=== PATIENT | female | born 1985 | race Caucasian/White ===

== ENCOUNTER 2021-03-12 04:53 | Emergency (ER) | payer OTHER, SELFPAY ==
--- NOTE | ~2021-03-12 | CT_ITS ---
EXAMINATION: CT facial bones wo con DATE: 03/12/2021 06:34 INDICATION: Face injury. TECHNIQUE: Computed tomography (CT) of the facial bones and maxillofacial region was performed withou t intravenous contrast. Automated exposure control and iterative reconstruction technique were employ ed. The dose-length product was 279.91 mGy-cm. COMPARISON: None. FINDINGS: There is leftward deviation the nasal septum. There is a comminuted fractures involving the nasal bones and anterior nasal septum. There is mild mucosal thickening in the paranasal sinuses. Th e mastoid air cells are normal. The orbits are normal. There is right periorbital soft tissue swellin g with soft tissue gas. Some of the teeth are broken. There are periapical lucencies around a broken left mandibular molar. IMPRESSION: 1. Comminuted fractures involving the nasal bones and anterior nasal septum. Reviewed, dictated and finalized at location A. 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
[2021-03-12 04:56] VITALS: BP 157/99; PULSE 104; RESP 20; TEMP 36.4; O2SAT 98
[2021-03-12 05:43] VITALS: PULSE 90; RESP 16; O2SAT 98
--- NOTE | 2021-03-12 05:49 | ED.GENADULT ---
HPI - General Adult General Chief complaint: Wound/Laceration <Alvaro Blair MD - Last Filed: 03/12/21 06:25> Stated complaint: Fell out of bed, face lacs <Alvaro Blair MD - Last Filed: 03/12/21 06:25> Time Seen by Provider: 03/12/21 05:44 <Alvaro Blair MD - Last Filed: 03/12/21 06:25> History of Present Illness HPI narrative: Patient 35-year-old female presents the emergency department with chief complaint of facial injury. The patient reports she was getting out of bed tripped fell struck a chair and has a laceration on her nose and her right eyelid. The patient reports she is unsure of her last tetanus shot reports no loss of consciousness reports she had a nosebleed afterwards. <Alvaro Blair MD - Last Filed: 03/12/21 06:25> Related Data Home medications: Home Medications Medication Instructions Recorded Confirmed rosuvastatin mg 03/12/21 sertraline mg 03/12/21 <Alvaro Blair MD - Last Filed: 03/12/21 06:25> Allergies/adverse reactions: Allergies Allergy/AdvReac Type Severity Reaction Status Date / Time erythromycin base AdvReac Mild NAUSEA/VOMI Verified 03/12/21 04:58 TING <Alvaro Blair MD - Last Filed: 03/12/21 06:25> Review of Systems Review of Systems: A 10 system review of systems was completed on the patient and is negative except for what is stated in the HPI. Nursing and ancillary documentation was reviewed. <Alvaro Blair MD - Last Filed: 03/12/21 06:25> Exam Narrative: GENERAL: Well-appearing, well-nourished, and in no acute distress. HEAD: Normocephalic, there is a 1/2 cm laceration of the right eyelid upper portion EYES: PERRLA and EOMI. ENT: Nares clear, no rhinorrhea there is dried blood in the nostril. Mucous membranes moist. There is a 2 cm laceration to the bridge of the nose NECK: Supple. CHEST: Clear to auscultation. No respiratory distress. HEART: Regular rate and rhythm. No murmur heard. Normal peripheral pulses. ABDOMEN: Soft, nontender, nondistended, normal active bowel sounds. EXTREMITIES: Normal range of motion. No edema. SKIN: Warm, dry, no rash. NEURO: No focal deficits. Alert and oriented x3. PSYCH: Normal mood and affect. <Alvaro Blair MD - Last Filed: 03/12/21 06:25> Course Vital Signs Vital signs: Vital Signs Temperature 36.4 C 03/12/21 04:56 Pulse Rate 104 H 03/12/21 04:56 Respiratory Rate 20 03/12/21 04:56 Blood Pressure 157/99 H 03/12/21 04:56 Pulse Oximetry 98 03/12/21 04:56 Temperature 36.4 C 03/12/21 04:56 Pulse Rate 90 03/12/21 05:43 Respiratory Rate 16 03/12/21 05:43 Blood Pressure 157/99 H 03/12/21 04:56 Pulse Oximetry 98 03/12/21 05:43 <Alvaro Blair MD - Last Filed: 03/12/21 06:25> Vital Signs Temperature 36.4 C 03/12/21 04:56 Pulse Rate 104 H 03/12/21 04:56 Respiratory Rate 20 03/12/21 04:56 Blood Pressure 157/99 H 03/12/21 04:56 Pulse Oximetry 98 03/12/21 04:56 Temperature 36.4 C 03/12/21 04:56 Pulse Rate 90 03/12/21 05:43 Respiratory Rate 16 03/12/21 05:43 Blood Pressure 157/99 H 03/12/21 04:56 Pulse Oximetry 98 03/12/21 05:43 <Cole Dickerson MD - Last Filed: 03/12/21 08:20> Procedures Laceration Laceration 1: Date: 03/12/21 <Alvaro Blair MD - Last Filed: 03/12/21 06:25> Time: 06:21 <Alvaro Blair MD - Last Filed: 03/12/21 06:25> Site: face <Alvaro Blair MD - Last Filed: 03/12/21 06:25> Side (If applicable): right <Alvaro Blair MD - Last Filed: 03/12/21 06:25> Size (cm): 2 <Alvaro Blair MD - Last Filed: 03/12/21 06:25> Description: linear and other (right upper eyelid) <Alvaro Blair MD - Last Filed: 03/12/21 06:25> Depth: simple, single layer <Merlin
[2021-03-12] MEDS: TETANUS,DIPHTHERIA,AC PERTUSSIS ADULT (0.5 ML) BOOSTRIX IM (05:54)
[2021-03-12] MEDS: LIDOCAINE HCL 1% LOCAL INJ 20 ML VIAL (06:01)
[2021-03-12] MEDS: CEPHALEXIN 500 MG CAPSULE PO (06:25)
[2021-03-12] MEDS: IBUPROFEN 400 MG TABLET 800 MG PO (08:32)
[2021-03-12] MEDS: ACETAMINOPHEN 325 MG TABLET 650 MG PO (08:32)
== END 2021-03-12 08:33 | disposition home or self-care (01) ==
PROVIDERS: Emergency Provider Emergency Medicine; PCP Family Medicine Adolescent Medicine
DX: S02.2XXA Fracture of nasal bones, initial encounter for closed fracture (principal); S01.21XA Laceration without foreign body of nose, initial encounter; S01.111A Laceration without foreign body of right eyelid and periocular area, initial encounter; W01.190A Fall on same level from slipping, tripping and stumbling with subsequent striking against furniture, initial encounter; Z23 Encounter for immunization
CPT/HCPCS: 12013; 70486; 90471; 90715; 99284; A9270

== ENCOUNTER 2023-04-16 04:26 | Emergency (ER) | payer OTHER, SELFPAY ==
[2023-04-16] VITALS (18 sets, daily range): BP systolic 141–155; BP diastolic 86–100; PULSE 67–112; RESP 12–19; TEMP 36.3; O2SAT 98–100
[2023-04-16 05:25] LABS: Basophils Percent Auto 0.5 % (0.2-1.2); Eosinophils Absolute Auto 0.1 K/mm3 (0-0.3); Eosinophils Percent Auto 1.2 % (0-4.4); Hematocrit 43.2 % (37.0-47.0); Immature Granulocyte Absolute 0.01 K/mm3 (0.00-0.031); Immature Granulocyte Percent A 0.2 % (0-0.5); Lymphocytes Absolute Auto 1.19 K/mm3 (0.9-3.2); Lymphocytes Percent Auto 28.7 % (18.3-44.2); Mean Corpuscular HGB Conc 34.7 g/dl (32-36); Mean Corpuscular Hemoglobin 31.1 pg (26-34); Mean Corpuscular Volume 89.4 fl (80-100); Mean Platelet Volume 9.8 fl (7.4-10.4); Monocytes Absolute Auto 0.3 K/mm3 (0.1-0.6); Neutrophils Absolute Auto 2.6 K/mm3 (1.3-6.7); Neutrophils Percent Auto 62.4 % (45.5-73.1); Platelet Count Result 209 k/mm3 (150-375); Red Blood Count 4.83 M/mm3 (4.2-5.4); Red Cell Distribution Width 12.7 % (11.5-14.5); White Blood Count 4.1 K/mm3 (4.5-10.0)
[2023-04-16 05:35] LABS: Ethanol 92 mg/dL (<10)
[2023-04-16 05:38] LABS: Alanine Aminotransferase 20 U/L (6-35); Albumin Level 4.3 g/dL (3.5-5.1); Alkaline Phosphatase 83 U/L (38-126); Anion Gap 10 mmol/L (8-16); Aspartate Amino Transferase 41 U/L (14-36); Bilirubin,Total 2.4 mg/dL (0.2-1.3); Blood Urea Nitrogen 7 mg/dL (7-17); Calcium 8.7 mg/dL (8.4-10.2); Carbon Dioxide 28 mmol/L (22-30); Chloride 101 mmol/L (98-107); Estimated CRCL calculation 102 ml/min; Estimated Glomerular Filt Rate > 60; Glucose 125 mg/dL (65-110); Potassium 3.8 mmol/L (3.4-5.0); Sodium 139 mmol/L (137-145)
[2023-04-16 06:02] LABS: Appearance Urine Clear (Clear); Bacteria Urine None Seen /hpf; Bilirubin Urine Negative (Negative); Blood Urine Negative (Negative); Color Urine Yellow (Yellow); Glucose Urine UA Negative (Negative); Ketones Urine Negative (Negative); Leukocyte Esterase Ur Negative LEU/UL (Negative); Nitrate Urine Negative (Negative); Non Pathogenic Casts 0-2; Protein Urine Trace mg/dL (Negative); RBC Urine 0-2 /hpf (0-2); Squamous Epithelial Cell Urine None seen /hpf (Few); WBC Urine 0-5 /hpf; pH Urine 6.5 (5.0-9.0)
[2023-04-16 06:08] LABS: Thyroid Stimulating Hormone 0.937 uIU/mL (0.465-4.680)
[2023-04-16 06:09] LABS: Add Urine Microscopic? YES
[2023-04-16] MEDS: SODIUM CHLORIDE 0.9% IV 1,000 ML 999 ML IV CONT (06:10)
[2023-04-16] MEDS: ONDANSETRON INJ 4 MG/2 ML VIAL IV PUSH ×2 (06:10→09:54)
[2023-04-16 06:11] LABS: Amphetamine Screen Urine Negative (Negative); Barbiturate Screen Urine Negative (Negative); Benzodiazepines Screen Urine Negative (Negative); Cannabinoid Screen Urine Negative (Negative); Cocaine Screen Urine Negative (Negative); Methadone Screen Urine Negative (Negative); Opiate Screen Urine Negative (Negative); Phencyclidine Screen Urine Negative (Negative)
[2023-04-16] MEDS: chlordiazePOXIDE (*CRX) 25 MG CAPSULE 50 MG PO (06:11)
--- NOTE | 2023-04-16 06:21 | PC.NURSE ---
CIWA 18. ERP notified and per ERP, give the 2mg PRN Ativan dose instead of the 1mg.
--- NOTE | 2023-04-16 06:21 | ED.GENADULT ---
HPI - General Adult General Chief complaint: Alcohol <Alvaro Blair MD - Last Filed: 04/16/23 06:23> Stated complaint: alcohol w/drawl <Alvaro Blair MD - Last Filed: 04/16/23 06:23> Time Seen by Provider: 04/16/23 06:04 <Alvaro Blair MD - Last Filed: 04/16/23 06:23> History of Present Illness HPI narrative: Patient 38-year-old female who presents emergency department with chief complaint of alcohol withdrawal. The patient reports her last drink was approximately 12 hours ago patient states that she normally drinks 6-8 shots per day and maybe up to a 5th a day of alcohol. The patient reports that she has started to get nauseated and feel shaky and feels as though she is very anxious. Patient has had a prior hospitalization for alcohol withdrawal at [facility] and the patient states that today she would like to stop drinking <Alvaro Blair MD - Last Filed: 04/16/23 06:23> Patient 38-year-old female who presents to the emergency department with chief complaint of alcohol withdrawal. The patient reports her last drink was approximately 12 hours ago patient states that she normally drinks 6-8 shots per day and maybe up to a 5th a day of alcohol. The patient reports that she has started to get nauseated and feel shaky and feels as though she is very anxious. Patient has had a prior hospitalization for alcohol withdrawal at [facility] and the patient states that today she would like to stop drinking <Jairo Aragon MD - Last Filed: 04/16/23 17:54> Related Data Allergies/adverse reactions: Allergies Allergy/AdvReac Type Severity Reaction Status Date / Time erythromycin base AdvReac Mild NAUSEA/VOMI Verified 11/08/21 13:12 TING <Alvaro Blair MD - Last Filed: 04/16/23 06:23> Review of Systems Review of Systems: A 10 system review of systems was completed on the patient and is negative except for what is stated in the HPI. Nursing and ancillary documentation was reviewed. <Alvaro Blair MD - Last Filed: 04/16/23 06:23> [facility] Family History Family History: Family History Father Heart disease Depression Diabetes mellitus Grandparent Heart disease Breast cancer Depression Diabetes mellitus Grandparent Depression Mother Depression <Alvaro Blair MD - Last Filed: 04/16/23 06:23> Social History Social History: Social History Smoking status: Current every day smoker (Shelbie) Tobacco type: e-cigarettes/vaping Second hand tobacco smoke exposure: No Alcohol intake: never Substance use: never Substance use type: does not use Living arrangements: with family Occupation/Education: occupation Gender identity (if verbalized by the patient): Female Spiritual care concerns: No Agree to blood products: Yes <Alvaro Blair MD - Last Filed: 04/16/23 06:23> Exam Narrative: GENERAL: Well-appearing, well-nourished, and in no acute distress. HEAD: Normocephalic, atraumatic. EYES: PERRLA and EOMI. ENT: Nares clear, no rhinorrhea or epistaxis. Mucous membranes moist. NECK: Supple. CHEST: Clear to auscultation. No respiratory distress. HEART: Regular rate and rhythm. No murmur heard. Normal peripheral pulses. ABDOMEN: Soft, nontender, nondistended, normal active bowel sounds. EXTREMITIES: Normal range of motion. No edema. SKIN: Warm, dry, no rash. NEURO: No focal deficits. Alert and oriented x3. Slightly tremulous PSYCH: Normal mood and affect. <Alvaro Blair MD - Last Filed: 04/16/23 06:23> Course Reevaluation(s) Reevaluation #1: 48-year-old female presenting to the emergency department for evaluation for alcohol withdrawal. Patient states she does not have alcohol withdrawal seizures. Patient states she does no
[2023-04-16] MEDS: LORazepam INJ (*CRX) 2 MG/ML VIAL IV PUSH (06:30)
[2023-04-16 06:33] LABS: Influenza A QL RT-PCR Negative (Negative); Influenza B QL RT-PCR Negative (Negative); RSV RNA, RT-PCR Negative (Negative); SARS-CoV-2 RNA PCR Negative (Negative)
[2023-04-16] MEDS: THIAMINE 500 MG/NS 100 ML 500 MG/100 ML BAG 200 MG IVPB (06:51)
--- NOTE | 2023-04-16 07:18 | PC.NURSE ---
Report to Jeanmarie Escoto. Pt resting quietly in nad at this time.
[2023-04-16 07:58] LABS: Magnesium 1.5 mg/dL (1.6-2.3); Phosphorus 3.4 mg/dL (2.5-4.5)
[2023-04-16] MEDS: DEXTROSE 5%/0.45% SOD CHL 1,000 ML 125 ML IV CONT (08:10)
--- NOTE | 2023-04-16 09:27 | PCCCNOTE ---
Call received from nursing staff requesting Mansoor from [facility] to see pt. Mansoor not here right now so saw pt and given [facility] card and AA meetings. Pt confirmed that she would welcome contact after discharge if needed and gave OK to give pt's information to Mansoor with [facility]. Face sheet with confirmed phone number left for Mansoor. Provider informed of plan.
[2023-04-16] MEDS: LORazepam INJ (*CRX) 2 MG/ML VIAL 1 MG IV PUSH (09:54)
== END 2023-04-16 10:30 | disposition home or self-care (01) ==
PROVIDERS: Emergency Provider Emergency Medicine; PCP Family Medicine Adolescent Medicine
DX: F10.10 Alcohol abuse, uncomplicated (principal); Y90.4 Blood alcohol level of 80-99 mg/100 ml; Z11.52 Encounter for screening for COVID-19; F17.290 Nicotine dependence, other tobacco product, uncomplicated
CPT/HCPCS: 36415; 80053; 80307; 81001; 81025; 83735; 84100; 84443; 85025; 87637; 96361; 96365; 96375; 96376; 99284; A9270; J2060; J2405; J3411; J7030

== ENCOUNTER 2023-11-21 12:36 | Inpatient (IN) | payer OTHER, SELFPAY ==
[2023-11-21] VITALS (22 sets, daily range): BP systolic 130–178; BP diastolic 83–139; PULSE 101–151; RESP 11–22; TEMP 36.4–37.1; O2SAT 96–100
--- NOTE | ~2023-11-21 | CT_ITS ---
CT of the Abdomen and Pelvis: Indication: Elevated lipase Technique: 2.5 mm axial scans were obtained through the abdomen and pelvis following intravenous adm inistration of 100 cc of Omnipaque 350. Dose reduction technique was used on this scan by utilizing a utomated exposure control and iterative reconstruction technique. The dose-length product (DLP) was 4 33.12 mGy-cm. Findings: Scans through the lung bases are unremarkable. There is diffuse hepatic steatosis. Gallbladder is distended, but no gallstone or gallbladder wall th ickening evident on CT imaging. The spleen, pancreas, adrenals and kidneys are within normal limits. No evidence of aortic aneurysm. No lymphadenopathy. No bowel obstruction or bowel wall thickening. There is no evidence to suggest acute appendicitis. Images through the pelvis were performed. Urinary bladder unremarkable. 2.7 cm left ovarian cyst pres ent. No other adnexal mass seen. No ascites. Impression: Diffuse hepatic steatosis. Distended gallbladder without evidence of gallstone or gallbladder wall thickening. Consider ultrasou nd and/or HIDA scan as indicated. 2.7 cm left ovarian cyst. Reviewed, dictated and finalized at [facility]. Impression: Diffuse hepatic steatosis. Distended gallbladder without evidence of gallstone or gallbladder wall thicken ing. Consider ultrasound and/or HIDA scan as indicated. 2.7 cm left ovarian cyst.
--- NOTE | ~2023-11-21 | US_ITS ---
EXAMINATION: US abdomen limited DATE: 11/21/2023 15:17 INDICATION: Cholecystitis. TECHNIQUE: Multiple grayscale and Doppler ultrasound images of the abdomen were obtained. COMPARISON: CT abdomen and pelvis 11/21/2023 FINDINGS: The visualized portions of the head and body of the pancreas are normal. There is diffuse h epatic steatosis. There is normal flow in main portal vein. The gallbladder is distended. No gallston es or gallbladder wall thickening. There is no sonographic Byers's sign. The common duct is normal a nd measures 4 mm. IMPRESSION: 1. Diffuse hepatic steatosis. 2. Gallbladder distention, likely secondary to fasting. Reviewed, dictated and finalized at location A.
--- NOTE | ~2023-11-21 | MR_ITS ---
EXAMINATION: MR MRCP wo/w con/w 3D wo ind DATE: 11/22/2023 13:51 INDICATION: Elevated lipase TECHNIQUE: Magnetic resonance imaging (MRI) of the abdomen was performed without and with 15 mL Multi selene intravenous contrast. Sequences included coronal T2-weighted SS-FSE, coronal T2-weighted FS SS- FSE, coronal T2-weighted FS FIESTA, axial T2-weighted FS FIESTA, axial T2-weighted FIESTA, sagittal T 2-weighted SS-FSE, axial T1-weighted dual-echo FSPGR, axial T2-weighted SS-FSE, axial T1-weighted LAV A, axial T2-weighted STIR FSE. Thick-slab T2-weighted FRFSE-XL images were obtained for magnetic reso nance cholangiopancreatography (MRCP). Rotating maximum intensity projection 3-D reconstructions of t he volumetric data were created by the technologist. Postcontrast sequences included a time course of axial T1-weighted LAVA. COMPARISON: CT and ultrasound dated 11/21/2023 FINDINGS: ABDOMEN MRI: Heart size is normal. No pericardial effusion. Trace bilateral pleural effusions. Prominent diffuse h epatic steatosis with significant signal dropout on opposed phase imaging. Gallbladder, spleen, pancr eas and bilateral adrenal glands are normal. No evident cholelithiasis. There is mild bilateral perin ephric stranding. Kidneys are otherwise unremarkable. Visualized portion of the bowels including the appendix are normal. No pathologically enlarged abdominal or upper pelvic lymphadenopathy. Normal bon e marrow signal throughout. ABDOMEN MRCP: No intrahepatic biliary ductal dilation. The common bile duct is normal. 4 mm in maximal diameter pro ximally tapering to 1 mm at the distal duct. No evident choledocholithiasis. The main pancreatic duct is also normal. IMPRESSION: 1. No cholelithiasis/choledocholithiasis or intra or extrahepatic ductal or ductal dilation. 2. Diffuse hepatic steatosis. Reviewed, dictated and finalized at location A. IMPRESSION: 1. No cholelithiasis/choledocholithiasis or intra or extrahepatic ductal or angela donny dilation. 2. Diffuse hepatic steatosis.
--- NOTE | 2023-11-21 12:51 | ED.GIBLEED ---
HPI - GI Bleed General Chief complaint: GI Bleed Stated complaint: pooping blood Time Seen by Provider: 11/21/23 12:50 Source: patient Mode of arrival: ambulatory Limitations: no limitations History of Present Illness HPI Narrative: 38 years old white female came to the ED by private car complaining of dark red blood noticed in the stool this morning. She denies any fever, chills, nausea, vomiting, urinary symptoms, vaginal bleeding or discharge. Patient is alcoholic, drinks daily, last alcohol intake was 3 hours prior to arrival. History of depression, hyperlipidemia, run out of Ativan 6 days ago. Related Data Allergies Allergy/AdvReac Type Severity Reaction Status Date / Time erythromycin base AdvReac Mild NAUSEA/VOMI Verified 08/12/23 10:30 TING Review of Systems Review of Systems: All systems reviewed & are unremarkable except as noted in HPI and below PMFSH Family History Family History Father Heart disease Depression Diabetes mellitus Grandparent Heart disease Breast cancer Depression Diabetes mellitus Grandparent Depression Mother Depression Social History Social History Smoking status: Current every day smoker (Shelbie) Tobacco type: e-cigarettes/vaping Second hand tobacco smoke exposure: No Alcohol intake: never Substance use: never Substance use type: does not use Do You Feel Safe in your Home?: Yes Lack of Transportation: No Lack of Food: Never True Current Housing: I Have Housing Concerned About Future Housing: No Difficulty Paying Gas/Electric Bills: No Difficulty Paying for Meds: No Currently Unemployed: No Education: High School Diploma/GED Difficulty w/ Childcare or Family Care: No Living arrangements: with family Occupation/Education: occupation Gender identity (if verbalized by the patient): Female Spiritual care concerns: No Agree to blood products: Yes Exam Narrative: General appearance: Well-developed, well-nourished Skin: Normal color Head: Normocephalic, nontraumatic Eyes: Clear conjunctiva ENT: Oropharynx normal, ears normal, nose normal Neck: Supple, nontender Chest and respiratory: Airway patent, no respiratory distress, no accessory muscle use Heart: Regular rate/rhythm Abdomen: Soft, nontender, no organomegaly, quiet bowel sounds, rectal exam showed no hemorrhoids, no active bleeding, guaiac negative, empty rectal pouch Vascular: Normal peripheral pulses, normal capillary refill. Musculoskeletal: Normal range of motion, nontender back Neurologic: Alert and oriented ?3, SURVEILLANCE SYSTEMS ANALYST is normal as tested, no gross motor deficit Course Consultations Consultation #1: Dr. Thomas Date: 11/21/23 Time: 15:58 Vital Signs Vital signs: Vital Signs Temperature 36.4 C 11/21/23 12:38 Pulse Rate 151 H 11/21/23 12:38 Respiratory Rate 22 H 11/21/23 12:38 Blood Pressure 130/83 11/21/23 12:38 Pulse Oximetry 98 11/21/23 12:38 Oxygen Delivery Room Air 11/21/23 12:38 Temperature 36.4 C 11/21/23 12:38 Pulse Rate 118 H 11/21/23 15:32 Respiratory Rate 15 11/21/23 15:32 Blood Pressure 176/111 H 11/21/23 15:32 Pulse Oximetry 98 11/21/23 15:32 Oxygen Delivery Room Air 11/21/23 12:38 MDM - GI Bleed MDM Narrative Medical decision making narrative: Patient came to the ED by private car claiming dark red blood in the stool noticed this morning Patient is alcoholic, drinks daily, last drink was 3 hours prior to arrival. Patient is telling me that she ran out of Ativan 6 days ago Vital signs on arrival show
[2023-11-21] MEDS: SODIUM CHLORIDE 0.9% IV 1,000 ML 999 ML IV CONT ×2 (13:25→14:01)
[2023-11-21] MEDS: PANTOPRAZOLE SODIUM IV 40 MG VIAL IV PUSH ×2 (13:25→20:02)
[2023-11-21 13:29] LABS: Basophils Percent Auto 0.4 % (0.2-1.2); Eosinophils Percent Auto 0.5 % (0-4.4); Hematocrit 44.3 % (37.0-47.0); Hemoglobin 15.5 g/dL (12.0-15.0); Immature Granulocyte Absolute 0.03 K/mm3 (0.00-0.031); Immature Granulocyte Percent A 0.5 % (0-0.5); Immature Platelet Fraction Pct 6.4 % (0.9-11.2); Lymphocytes Absolute Auto 0.68 K/mm3 (0.9-3.2); Mean Corpuscular Hemoglobin 31.7 pg (26-34); Mean Corpuscular Volume 90.6 fl (80-100); Mean Platelet Volume 10.1 fl (7.4-10.4); Monocytes Absolute Auto 0.3 K/mm3 (0.1-0.6); Monocytes Percent Auto 5.8 % (2.6-8.5); Neutrophils Absolute Auto 4.6 K/mm3 (1.3-6.7); Neutrophils Percent Auto 80.8 % (45.5-73.1); Platelet Count Result 208 k/mm3 (150-375); Red Blood Count 4.89 M/mm3 (4.2-5.4); Red Cell Distribution Width 15.9 % (11.5-14.5); White Blood Count 5.7 K/mm3 (4.5-10.0)
[2023-11-21] MEDS: LORazepam INJ (*CRX) 2 MG/ML VIAL IV PUSH ×3 (13:36→21:09)
[2023-11-21 13:45] LABS: Alanine Aminotransferase 109 U/L (6-35); Albumin Level 4.6 g/dL (3.5-5.1); Alkaline Phosphatase 220 U/L (38-126); Anion Gap 20 mmol/L (4-12); Aspartate Amino Transferase 554 U/L (14-36); Bilirubin,Total 2.7 mg/dL (0.2-1.3); Blood Urea Nitrogen 19 mg/dL (7-17); Calcium 7.7 mg/dL (8.4-10.2); Carbon Dioxide 20 mmol/L (22-30); Chloride 95 mmol/L (98-107); Estimated Glomerular Filt Rate > 60; Glucose 157 mg/dL (65-110); Lipase 1456 U/L (23-300); Potassium 3.3 mmol/L (3.4-5.0); Sodium 135 mmol/L (137-145)
[2023-11-21 13:46] LABS: Ethanol 172 mg/dL (<10)
[2023-11-21 15:49] LABS: BEDSIDEPREGUCG Negative
[2023-11-21 15:50] LABS: Add Urine Microscopic? YES; Appearance Urine Clear (Clear); Bacteria Urine None Seen /hpf; Bilirubin Urine Negative (Negative); Blood Urine Negative (Negative); Color Urine Yellow (Yellow); Glucose Urine UA Negative (Negative); Ketones Urine Negative (Negative); Leukocyte Esterase Ur Negative LEU/UL (Negative); Need Manual Microscopic Reviewed; Nitrate Urine Negative (Negative); Non Pathogenic Casts 0-2; Protein Urine 1+ mg/dL (Negative); RBC Urine 0-2 /hpf (0-2); Specific Grav Ur > 1.045 (1.001-1.035); Squamous Epithelial Cell Urine None Seen /hpf (Few); WBC Urine 0-5 /hpf (0-3)
--- NOTE | 2023-11-21 16:06 | PC.NURSE ---
patient is resting peacefully with equal chest rise and fall after Ativan. mother is bedside with patient.
--- NOTE | 2023-11-21 17:08 | PM.IMHP ---
H&P: HPI History of Present Illness Date/Time: 11/21/23 17:08 Chief Complaint: Blood in stool Narrative: 38-year-old female with PMHx: of alcohol dependence, depression. Ms Beck reports that she has been dealing with depression for the past 2-3 months. She reports today she was discussing with her mother the possibility of seeking inpatient alcohol detox center, when she started having abrupt bloody stools this morning. She denies any shortness a breath fever chills nausea vomiting. Patient admits she did have a drink of vodka this morning prior to her emergency room arrival. ED work-up reveals: Initially tachycardic in the 150s, hgb actually 15.5 total bilirubin LFTs are elevated, her lipase is 1456 CT of the abdomen and pelvis showed hepatic steatosis, distended gallbladder without evidence of gallstones or gallbladder wall thickening, a 2.7 left ovarian cyst, ultrasound of the abdomen showing gallbladder distension likely due to fasting, negative sonogram Byers sign. Patient was given 2 mg of Ativan x2 in the ED 2 L of NS fluid, CIWA initiated, thiamine, folic acid and pantoprazole BID started, GI consulted. Review of Systems Review of Systems: All systems reviewed & are unremarkable except as noted in HPI and below PMFSH Family History Family History Father Heart disease Depression Diabetes mellitus Grandparent Heart disease Breast cancer Depression Diabetes mellitus Grandparent Depression Mother Depression Social History Social History Smoking status: Current every day smoker (Ecigelfegottes) Tobacco type: e-cigarettes/vaping Second hand tobacco smoke exposure: No Alcohol intake: never Substance use: never Substance use type: does not use Do You Feel Safe in your Home?: Yes Lack of Transportation: No Lack of Food: Never True Current Housing: I Have Housing Concerned About Future Housing: No Difficulty Paying Gas/Electric Bills: No Difficulty Paying for Meds: No Currently Unemployed: No Education: High School Diploma/GED Difficulty w/ Childcare or Family Care: No Living arrangements: with family Occupation/Education: occupation Gender identity (if verbalized by the patient): Female Spiritual care concerns: No Agree to blood products: Yes Meds Home Medications and Allergies Home Medications Medication Instructions Recorded Confirmed Type quetiapine 150 mg tablet,extended 150 mg PO QHS #90 tabs 09/29/23 11/21/23 Rx release 24 hr lorazepam 1 mg tablet (Ativan) 1 mg PO BID-TID PRN anxiety #45 11/04/23 11/21/23 Rx tabs atorvastatin 80 mg tablet 80 mg PO HS 11/21/23 11/21/23 History naltrexone 50 mg tablet 100 mg PO Q12H 11/21/23 11/21/23 History sertraline 100 mg tablet 100 mg PO HS 11/21/23 11/21/23 History Allergies Allergy/AdvReac Type Severity Reaction Status Date / Time erythromycin base AdvReac Mild NAUSEA/VOMI Verified 08/12/23 10:30 TING Vital Signs Vital Signs - 24 hr 11/21/23 12:38 11/21/23 13:01 11/21/23 13:31 Temperature 97.6 F Pulse Rate 151 H 121 H 112 H Respiratory Rate 22 H 15 11 L Blood Pressure 130/83 155/115 H 170/109 H Pulse Oximetry 98 98 98 Oxygen Delivery Room Air 11/21/23 13:46 11/21/23 13:57 11/21/23 14:01 Temperature Pulse Rate 112 H 103 H 104 H Respiratory Rate 16 15 17 Blood Pressure 150/139 H 170/111 H 163/107 H Pulse Oximetry 98 98 99 Oxygen Delivery 11/21/23 14:33 11/21/23 15:32 11/21/23 15:59 Temperature Pulse Rate 106 H 118 H 112 H Respiratory Rate 18 15 Blood Pressure 168/107 H 176/111 H Pulse Oximetry 98 98 Oxygen Delivery 11/21/23 15:46 11/21/23 16:13 Temperature 97.9 F Pulse Rate 123 H Respiratory Rate 18 Blood Pressure 164/118 H Pulse Oximetry 100 Oxygen Delivery Exam Narrative: General: A well-developed, acutely ill
[2023-11-21] MEDS: LABETALOL HCL INJ 100 MG/20 ML VIAL 20 MG IV PUSH (17:09)
[2023-11-21] MEDS: chlordiazePOXIDE (*CRX) 25 MG CAPSULE PO ×2 (17:19→23:47)
--- NOTE | 2023-11-21 18:12 | PC.NURSE ---
patient was unable to go to the floor because bp was elevated. most recent bp is now 146/99 and was able to give report to the floor at 1810
--- NOTE | 2023-11-21 18:30 | ADMGEN ---
This patient, Leta Beck, was admitted to Medical Room 346-01. Patient/family oriented to hospital policies and general routines including ID bracelet, bed and alarms, visiting hours, pain management, procedures, bathroom and other care routines, personal items, smoking policy, room service/diet, and visiting hours. Information on how to activate the Rapid Response Team has been discussed. Patient/Family are encouraged to report perceived risks to care and to ask questions if they do not understand what they are told or what they should do.
[2023-11-21 19:00] LABS: Glucose Point of Care 109 mg/dl (65-105)
[2023-11-21] MEDS: MORPHINE SULFATE (*CRX) 2 MG/ML INJ 1 MG IV PUSH (20:02)
[2023-11-21] MEDS: QUEtiapine FUMARATE XR 50 MG TAB.ER.24H 150 MG PO (20:02)
[2023-11-21] MEDS: SERTRALINE HCL 50 MG TABLET 100 MG PO (20:02)
[2023-11-21] MEDS: SODIUM CHLORIDE 0.9% IV 1,000 ML 200 ML IV CONT (20:44)
[2023-11-21] MEDS: ONDANSETRON INJ 4 MG/2 ML VIAL IV PUSH (23:47)
[2023-11-21 23:53] LABS: Glucose Point of Care 109 mg/dl (65-105)
[2023-11-21 23:53] LABS: Glucose Point of Care 112 mg/dl (65-105)
[2023-11-22] VITALS (10 sets, daily range): BP systolic 118–175; BP diastolic 62–102; PULSE 91–115; RESP 14–20; TEMP 36.6–36.9; O2SAT 97–100
[2023-11-22] MEDS: SODIUM CHLORIDE 0.9% IV 1,000 ML 200 ML IV CONT ×5 (02:13→23:22)
[2023-11-22] MEDS: LORazepam INJ (*CRX) 2 MG/ML VIAL IV PUSH ×3 (04:29→17:34)
[2023-11-22 05:48] LABS: Basophils Percent Auto 0.5 % (0.2-1.2); Eosinophils Absolute Auto 0.1 K/mm3 (0-0.3); Eosinophils Percent Auto 2.2 % (0-4.4); Hematocrit 34.1 % (37.0-47.0); Hemoglobin 11.5 g/dL (12.0-15.0); Immature Granulocyte Absolute 0.02 K/mm3 (0.00-0.031); Immature Granulocyte Percent A 0.5 % (0-0.5); Lymphocytes Percent Auto 19.5 % (18.3-44.2); Mean Corpuscular HGB Conc 33.7 g/dl (32-36); Mean Corpuscular Hemoglobin 31.5 pg (26-34); Mean Corpuscular Volume 93.4 fl (80-100); Mean Platelet Volume 10.2 fl (7.4-10.4); Monocytes Absolute Auto 0.2 K/mm3 (0.1-0.6); Monocytes Percent Auto 4.6 % (2.6-8.5); Neutrophils Percent Auto 72.7 % (45.5-73.1); Platelet Count Result 108 k/mm3 (150-375); Red Blood Count 3.65 M/mm3 (4.2-5.4); Red Cell Distribution Width 15.6 % (11.5-14.5); White Blood Count 4.1 K/mm3 (4.5-10.0)
[2023-11-22 06:34] LABS: Hepatitis B Surface Antigen Negative (Negative)
[2023-11-22 06:40] LABS: HAV RESULT Negative (Negative); Hepatitis B Core IgM Result Negative (Negative)
[2023-11-22 06:52] LABS: Hepatitis C Virus Antibody Negative (Negative)
[2023-11-22 07:50] LABS: Alanine Aminotransferase 72 U/L (6-35); Albumin Level 3.4 g/dL (3.5-5.1); Alkaline Phosphatase 144 U/L (38-126); Anion Gap 13 mmol/L (4-12); Aspartate Amino Transferase 340 U/L (14-36); Bilirubin,Total 2.8 mg/dL (0.2-1.3); Blood Urea Nitrogen 12 mg/dL (7-17); Calcium 5.7 mg/dL (8.4-10.2); Carbon Dioxide 19 mmol/L (22-30); Chloride 102 mmol/L (98-107); Estimated Glomerular Filt Rate > 60; Glucose 80 mg/dL (65-110); Magnesium 1.8 mg/dL (1.6-2.3); Potassium 2.7 mmol/L (3.4-5.0); Sodium 134 mmol/L (137-145)
[2023-11-22 08:28] LABS: Lipase 2546 U/L (23-300)
[2023-11-22 08:33] LABS: Glucose Point of Care 82 mg/dl (65-105)
--- NOTE | 2023-11-22 08:33 | P.CONGI_ITS ---
I, Remigio Terry MD, have provided a substantive portion of the care of this patient and discussed the patient with my Nurse Practitioner. I have reviewed any new relevant radiographic and laboratory results including medications. I agree with her documentation as noted below.?I personally performed the medical decision making and much of the history and exam for this encounter. briefly, she is an alcoholic for at least 1.5 year here with new onset of severe abdominal pain and nausea, diagnosed with first episode of pancreatitis. Also noted pancytopenia (probably BM and liver dysfunction from alcohol abuse) and elevated liver enzymes, imaging suggestive of fatty liver. Here with alcoholic hepatitis and pancreatitis. Plan is npo, continue with iv fluids, pain control, thiamine and trend liver enzymes. Had self-limited rectal bleeding, last colonoscopy years ago with hemorrhoids. Diet when pain is better, thiamine and stop drinking alcohol. Assessment and Plan Assessment and plan (1) Acute pancreatitis: Qualifiers: Pancreatitis type: alcohol induced Acute pancreatitis complication: no infection or necrosis Qualified Code(s): K85.20 - Alcohol induced acute p ancreatitis without necrosis or infection Code(s): K85.90 - Acute pancreatitis without necrosis or infection, unspecified Status: Acute (2) Hepatitis, alcoholic: Qualifiers: Ascites presence: without ascites Qualified Code(s): K70.10 - Alcoholic hepatitis without ascites Code(s): K70.10 - Alcoholic hepatitis without ascites Status: Acute (3) Alcoholic dependence syndrome: Qualifiers: Substance use status: other alcohol-induced disorder Qualified Code(s): F10.288 - Alcohol dependence with other alcohol-induced disorder Code(s): F10.20 - Alcohol dependence, uncomplicated Status: Acute (4) Hepatic steatosis: Onset Date: 10/2023 Code(s): K76.0 - Fatty (change of) liver, not elsewhere classified Status: Acute (5) Bloody stool: Code(s): K92.1 - Melena Status: Acute (6) Elevated lipase: Code(s): R74.8 - Abnormal levels of other serum enzymes Status: Acute Plan 1. Possible acute pancreatitis/ETOH abuse/elevated lipase/nausea/decreased appetite: Patient with history of EtOH abuse x 1.5 years. Patient has never had an EGD. She states that she drinks around three 16 oz canned margaritas daily. last time she consumed alcohol was yesterday morning at which time she took a shot of vodka to try to feel better . She states that she has been trying to de crease her alcohol intake over the past few weeks. She is having daily bowel movements which she states are typically loose to liquid but more formed when she is not drinking. On admission ETOH level 172. Lipase has increased since admission 1456-->2546. no signs of biliary or pancreatic duct dilation on imaging and pancreas appeared normal on CT. patient admits to nausea and occasional dry heaving. Denies any hematemesis. Decreased appetite over the past few days. Denies any NSAID, aspirin, to coagulate use. DDX are extensive at this time. * continue CIWA protocol * Continue supportive care with pain management and antiemetics * bowel rest * MRCP to evaluate for non pancreatic etiology to explain elevated lipase since pancreas is normal on imaging 2. Alcoholic hepatitis/elevated LFT's/hepatic steatosis/pancytopenia-anemia: Maddrey's Score 5.1 (good prognosis). History of ETOH abuse x 1.[address] showed diffuse hepatic steatosis. INR 1.2, PT 15.5 , albumin 3.4. LFTs improving since admission showing t
--- NOTE | 2023-11-22 08:33 | WPDGICN ---
Assessment and Plan Assessment and plan (1) Acute pancreatitis: Qualifiers: Pancreatitis type: alcohol induced Acute pancreatitis complication: no infection or necrosis Qualified Code(s): K85.20 - Alcohol induced acute pancreatitis without necrosis or infection Code(s): K85.90 - Acute pancreatitis without necrosis or infection, unspecified Status: Acute (2) Hepatitis, alcoholic: Qualifiers: Ascites presence: without ascites Qualified Code(s): K70.10 - Alcoholic hepatitis without ascites Code(s): K70.10 - Alcoholic hepatitis without ascites Status: Acute (3) Alcoholic dependence syndrome: Qualifiers: Substance use status: other alcohol-induced disorder Qualified Code(s): F10.288 - Alcohol dependence with other alcohol-induced disorder Code(s): F10.20 - Alcohol dependence, uncomplicated Status: Acute (4) Hepatic steatosis: Onset Date: 10/2023 Code(s): K76.0 - Fatty (change of) liver, not elsewhere classified Status: Acute (5) Bloody stool: Code(s): K92.1 - Melena Status: Acute (6) Elevated lipase: Code(s): R74.8 - Abnormal levels of other serum enzymes Status: Acute Plan 1. Possible acute pancreatitis/ETOH abuse/elevated lipase/nausea/decreased appetite: Patient with history of EtOH abuse x 1.5 years. Patient has never had an EGD. She states that she drinks around three 16 oz canned margaritas daily. last time she consumed alcohol was yesterday morning at which time she took a shot of vodka to try to feel better . She states that she has been trying to decrease her alcohol intake over the past few weeks. She is having daily bowel movements which she states are typically loose to liquid but more formed when she is not drinking. On admission ETOH level 172. Lipase has increased since admission 1456-->2546. no signs of biliary or pancreatic duct dilation on imaging and pancreas appeared normal on CT. patient admits to nausea and occasional dry heaving. Denies any hematemesis. Decreased appetite over the past few days. Denies any NSAID, aspirin, to coagulate use. DDX are extensive at this time. continue CIWA protocol Continue supportive care with pain management and antiemetics bowel rest MRCP to evaluate for non pancreatic etiology to explain elevated lipase since pancreas is normal on imaging 2. Alcoholic hepatitis/elevated LFT's/hepatic steatosis/pancytopenia-anemia: Maddrey's Score 5.1 (good prognosis). History of ETOH abuse x 1.[address] showed diffuse hepatic steatosis. INR 1.2, PT 15.5 , albumin 3.4. LFTs improving since admission showing total bilirubin 2.7-->2.8, AST 554-->340, ALT 109-->72, alkaline phosphatase 220-->144. H&H normal on admission today HGB 12, HCT 34, MCV 93, and platelets 108. No signs of active GI bleeding since admission. prior to admission patient admits to dark red blood per rectum after bowel movement. No blood noted in stool during today's BM. DDX: Acute alcoholic hepatitis versus early cirrhosis not seen on imaging. Patient will need an outpatient liver workup once acute alcoholic hepatitis has resolved to rule out that liver damage is not more chronic in nature continue PPI drip if H&H does not stabilize may consider EGD to rule out varices or Chelo-Leon tear Discussed importance of alcohol cessation. Encourage participation in support groups for alcohol abuse. 3. Hypokalemia/hyponatremia: Labs today show sodium 134, potassium 2.7. Currently receiving replacement Primary care team to continue monitoring and correct as needed Thank you very much for allowing me to share in the care of this very nice patient. This report may have been done utilizing a voice recognition system. Attempts have been made to correct errors. However, there may be uncorrected grammatical, spelling, and recognition errors present. GI Consult Note Consult
--- NOTE | 2023-11-22 08:40 | PM.IMPN ---
Progress Note: A&P Assessment and Plan (1) Acute pancreatitis: Code(s): K85.90 - Acute pancreatitis without necrosis or infection, unspecified Status: Acute (2) Bloody stool: Code(s): K92.1 - Melena Status: Acute (3) Hypokalemia: Code(s): E87.6 - Hypokalemia Status: Acute (4) Hypocalcemia: Code(s): E83.51 - Hypocalcemia Status: Acute (5) Hyperbilirubinemia: Code(s): E80.6 - Other disorders of bilirubin metabolism Status: Acute (6) Alcoholic dependence syndrome: Code(s): F10.20 - Alcohol dependence, uncomplicated Status: Acute (7) Hepatic steatosis: Onset Date: 10/2023 Code(s): K76.0 - Fatty (change of) liver, not elsewhere classified Status: Acute (8) Depression: Qualifiers: Active/Remission status: in partial remission Depression Type: major depressive disorder Major depression recurrence: recurrent Qualified Code(s): F33.41 - Major depressive disorder, recurrent, in partial remission Code(s): F32.A - Depression, unspecified Status: Acute (9) Alcohol use: Code(s): Z78.9 - Other specified health status Status: Acute Plan Acute blood-loss anemia, acute GI bleeding Patient came in with chief complaint of bloody stool Hemoglobin drops of 15. 5-11.5 today Suspecting acute blood loss anemia due to GI bleeding Keep patient p.o. Start Protonix drip Follow-up CBC, hemoglobin q.6 hours Transfuse to p.r.n. GI has consulted, follow-up recommendations Alcohol dependence, alcohol withdrawal drinks 1 pint vodka daily,last drink prior to ED arrival continue CIWA per protocol scheduled Ativan consult care coordination ( pt would like assistance with in-pt detox prior to discharge) continue telemetry monitoring neuro checks q.2 hours Acute pancreatitis, Possible due to alcohol abuse Elevated lipase CT shows distended gallbladder no stone Keep patient p.o. Start fluid resuscitation Follow-up GI recommendation Alcoholic hepatitis, hepatic steatosis Elevated liver enzymes, total bilirubin above baseline CT shows hepatic steatosis Acute increased liver enzymes suggesting alcoholic hepatitis Follow-up CMP Nausea liver enzymes trending down Severe hypokalemia, hypocalcemia Potassium 2.7, calcium 5.7 Provide potassium chloride 40 mg IV once, causing glucose at 2 g IV once Follow-up BMP q.6 hours Correct electrolyte abnormality accordingly Subjective Date/time seen: 11/22/23 08:40 Interval history: I saw exam patient today, patient still has severe abdomen pain, also with nausea vomiting, cannot tolerate diet Labs reviewed, hemoglobin 11.5, dropped from 15.5 yesterday, severe hypokalemia potassium 2.7, hypocalcemia 5.7, elevated total bilirubin 2.8, elevated liver enzymes, and elevated total bilirubin 2.8, lipase 2549 Exam Narrative: GENERAL: Ill-appearing, pain distress. Well-nourished. - EYES: EOMI. Anicteric. - HENT: Moist mucous membranes. - LUNGS: Clear to auscultation bilaterally, no wheezing, rhonchi, or rales. - CARDIOVASCULAR: Regular rate and rhythm. No murmur. No JVD. - ABDOMEN: Soft, diffuse abdominal tender and non-distended. No palpable masses. - EXTREMITIES: No edema. Peripheral pulses 2+. Non-tender. - NEUROLOGIC: No focal neurological deficits. CN II-XII grossly intact. - PSYCHIATRIC: Awake, Alert and oriented x 3. Appropriate mood and affect. - SKIN: No rashes or lesions. Warm. - LYMPH: No cervical lymphadenopathy. Objective Data Vital Signs Vital Signs: Vital Signs - 24 hr 11/21/23 12:38 11/21/23 13:01 11/21/23 13:31 Temperature 97.6 F Pulse Rate 151 H 121 H 112 H Respiratory Rate 22 H 15 11 L Blood Pressure 130/83 155/115 H 170/109 H Pulse Oximetry 98 98 98 Oxygen Delivery Room Air 11/21/23 13:46 11/21/23 13:57 11/21/23 14:01 Temperature Pulse Rate 112 H 103 H 104 H Respiratory Rate 16 15 17 Blood Pressure
[2023-11-22] MEDS: CALCIUM GLUC 2,000 MG/NS 100ML 2,000 MG/100 ML BAG 100 MG IVPB (08:58)
[2023-11-22] MEDS: THIAMINE HCL 200 MG/2 ML VIAL 100 MG IV PUSH (08:59)
[2023-11-22] MEDS: FOLIC ACID 1 MG TABLET PO (09:00)
[2023-11-22] MEDS: MORPHINE SULFATE (*CRX) 2 MG/ML INJ 1 MG IV PUSH (09:00)
[2023-11-22] MEDS: chlordiazePOXIDE (*CRX) 25 MG CAPSULE PO ×4 (09:00→23:21)
[2023-11-22 09:13] LABS: Hemoglobin 11.7 g/dL (12.0-15.0)
[2023-11-22 09:22] LABS: INR 1.2; Prothrombin Time 15.5 Seconds (11.1-14.7)
[2023-11-22] MEDS: PANTOPRAZOLE SODIUM IV 80 MG in SODIUM CHLORIDE 0.9% IV 500 ML 50 MG IV CONT ×2 (09:42→21:55)
[2023-11-22] MEDS: POTASSIUM CHLORIDE INJ 40 MEQ in SODIUM CHLORIDE 0.9% IV 500 ML 130 MEQ IVPB (09:48)
[2023-11-22] MEDS: HYDROmorphone HCL INJ (*CRX) 1 MG/ML SYR 0.5 MG IV PUSH ×5 (11:51→23:24)
[2023-11-22 12:14] LABS: Glucose Point of Care 73 mg/dl (65-105)
[2023-11-22] MEDS: LORazepam INJ (*CRX) 2 MG/ML VIAL 1 MG IV PUSH (13:14)
[2023-11-22 15:15] LABS: Hematocrit 34.1 % (37.0-47.0)
[2023-11-22 16:55] LABS: Glucose Point of Care 68 mg/dl (65-105)
[2023-11-22] MEDS: DEXTROSE 50% 25 GM/50 ML SYRINGE IV PUSH (17:36)
[2023-11-22 17:59] LABS: Glucose Point of Care 131 mg/dl (65-105)
[2023-11-22] MEDS: KETOROLAC 15 MG/ML VIAL (*BKC) IV PUSH (18:21)
[2023-11-22] MEDS: QUEtiapine FUMARATE XR 50 MG TAB.ER.24H 150 MG PO (20:13)
[2023-11-22] MEDS: SERTRALINE HCL 50 MG TABLET 100 MG PO (20:13)
[2023-11-22 21:11] LABS: Hematocrit 33.5 % (37.0-47.0); Hemoglobin 11.5 g/dL (12.0-15.0)
[2023-11-22 23:22] LABS: Glucose Point of Care 74 mg/dl (65-105)
[2023-11-22 23:30] LABS: Glucose Point of Care 77 mg/dl (65-105)
[2023-11-23] VITALS (10 sets, daily range): BP systolic 124–149; BP diastolic 82–93; PULSE 71–101; RESP 16–20; TEMP 36.3–36.9; O2SAT 96–99
[2023-11-23] MEDS: HYDROmorphone HCL INJ (*CRX) 1 MG/ML SYR 0.5 MG IV PUSH ×5 (03:16→20:19)
[2023-11-23] MEDS: SODIUM CHLORIDE 0.9% IV 1,000 ML 200 ML IV CONT ×2 (04:51→10:21)
[2023-11-23 05:03] LABS: Glucose Point of Care 66 mg/dl (65-105)
[2023-11-23] MEDS: DEXTROSE 50% 25 GM/50 ML SYRINGE IV PUSH (05:23)
[2023-11-23] MEDS: chlordiazePOXIDE (*CRX) 25 MG CAPSULE PO ×4 (05:23→23:01)
[2023-11-23 05:44] LABS: Glucose Point of Care 138 mg/dl (65-105)
[2023-11-23] MEDS: THIAMINE HCL 200 MG/2 ML VIAL 100 MG IV PUSH (07:46)
[2023-11-23] MEDS: LORazepam INJ (*CRX) 2 MG/ML VIAL IV PUSH (07:46)
[2023-11-23] MEDS: FOLIC ACID 1 MG TABLET PO (07:47)
[2023-11-23 08:02] LABS: Hematocrit 33.2 % (37.0-47.0); Hemoglobin 11.2 g/dL (12.0-15.0); Mean Corpuscular HGB Conc 33.7 g/dl (32-36); Mean Corpuscular Hemoglobin 32.2 pg (26-34); Mean Corpuscular Volume 95.4 fl (80-100); Mean Platelet Volume 10.7 fl (7.4-10.4); Platelet Count Result 100 k/mm3 (150-375); Red Blood Count 3.48 M/mm3 (4.2-5.4); Red Cell Distribution Width 15.7 % (11.5-14.5); White Blood Count 5.5 K/mm3 (4.5-10.0)
[2023-11-23] MEDS: PANTOPRAZOLE SODIUM IV 80 MG in SODIUM CHLORIDE 0.9% IV 500 ML 50 MG IV CONT ×2 (08:22→20:59)
[2023-11-23 09:12] LABS: Alanine Aminotransferase 61 U/L (6-35); Albumin Level 3.5 g/dL (3.5-5.1); Alkaline Phosphatase 147 U/L (38-126); Anion Gap 13 mmol/L (4-12); Aspartate Amino Transferase 232 U/L (14-36); Blood Urea Nitrogen 4 mg/dL (7-17); Carbon Dioxide 19 mmol/L (22-30); Chloride 103 mmol/L (98-107); Estimated Glomerular Filt Rate > 60; Glucose 69 mg/dL (65-110); Potassium 3.2 mmol/L (3.4-5.0); Sodium 135 mmol/L (137-145)
--- NOTE | 2023-11-23 10:17 | WPDGIPROGNO ---
Progress Note: A&P Assessment and Plan (1) Acute pancreatitis: Qualifiers: Acute pancreatitis complication: no infection or necrosis Pancreatitis type: alcohol induced Qualified Code(s): K85.20 - Alcohol induced acute pancreatitis without necrosis or infection Code(s): K85.90 - Acute pancreatitis without necrosis or infection, unspecified Status: Acute Assessment and Plan: clinically better mrcp reviewed, normal bile duct and pancreatic duct, + hepatic steatosis liquid today and monitor (2) Hepatitis, alcoholic: Qualifiers: Ascites presence: without ascites Qualified Code(s): K70.10 - Alcoholic hepatitis without ascites Code(s): K70.10 - Alcoholic hepatitis without ascites Status: Acute Assessment and Plan: also alcoholic hepatitis liquid diet, nutrition support, thiamine needs to quit drinking (3) Elevated liver enzymes: Code(s): R74.8 - Abnormal levels of other serum enzymes Status: Acute Assessment and Plan: alcoholic hepatitis and pancreatitis she can follow-up in office to complete evaluation (4) Alcoholic dependence syndrome: Qualifiers: Substance use status: other alcohol-induced disorder Qualified Code(s): F10.288 - Alcohol dependence with other alcohol-induced disorder Code(s): F10.20 - Alcohol dependence, uncomplicated Status: Acute (5) Hepatic steatosis: Onset Date: 10/2023 Code(s): K76.0 - Fatty (change of) liver, not elsewhere classified Status: Acute (6) Hypokalemia: Code(s): E87.6 - Hypokalemia Status: Acute (7) Thrombocytopenia: Code(s): D69.6 - Thrombocytopenia, unspecified Status: Acute Assessment and Plan: probably from alcohol/liver disease monitor Subjective Date/time seen: 11/23/23 10:17 Interval history: less pain and nausea she feels like trying liquid diet Review of Systems Review of Systems: All systems reviewed & are unremarkable except as noted in HPI and below Exam Const: General: comfortable and no acute distress HENMT: Face/Nose/Sinus: Normal nares present Eyes: General: appearance normal, both eyes and all related structures Neck: Neck: supple Resp: Auscultation: clear to auscultation bilaterally Cardio: Rate: regular rate Rhythm: regular rhythm GI: Inspection: non-distended GI Palp: Yes Soft to palpation and Yes Tenderness to palpation present (GI) (ttp diffusely, no rebound) Auscultation: normal bowel sounds Skin: General skin exam: normal color Neuro: Speech: normal speech Motor exam (neuro): 5/5 motor strength present throughout Extrem: General: normal to inspection Psych: Mental Status: mental status grossly normal Objective Data Vital Signs Vital Signs: Vital Signs - 24 hr 11/22/23 14:55 11/22/23 12:00 11/22/23 16:00 Temperature 97.8 F Pulse Rate 100 109 H 102 H Respiratory Rate 16 Blood Pressure 175/101 H Pulse Oximetry 98 Oxygen Delivery 11/22/23 16:00 11/22/23 20:00 11/22/23 20:00 Temperature 98.1 F Pulse Rate 97 96 Respiratory Rate 16 Blood Pressure 155/102 H Pulse Oximetry 98 Oxygen Delivery Room Air 11/22/23 20:00 11/22/23 23:38 11/23/23 00:00 Temperature 98.0 F 98.5 F Pulse Rate 97 91 101 H Respiratory Rate 20 20 Blood Pressure 152/88 H 139/82 Pulse Oximetry 100 98 Oxygen Delivery 11/23/23 04:00 11/23/23 04:00 11/23/23 09:46 Temperature 97.4 F L 98.0 F Pulse Rate 89 98 87 Respiratory Rate 18 16 Blood Pressure 132/82 141/85 H Pulse Oximetry 99 97 Oxygen Delivery Intake/Output Intake/Output: Intake & Output 11/20/23 11/21/23 11/22/23 11/23/23 23:59 23:59 23:59 23:59 Intake Total 3003.2 5936.7 1500 Balance 3003.2 5936.7 1500 Meds/Results Medications: Active Medications Generic Name Dose Route Start Last Admin Trade Name Freq PRN Reason Stop Dose Admin Chlordiazepoxide HCl 25 mg
[2023-11-23] MEDS: POTASSIUM CHLORIDE INJ 40 MEQ in SODIUM CHLORIDE 0.9% IV 500 ML 130 MEQ IVPB (10:21)
[2023-11-23] MEDS: CALCIUM GLUC 2,000 MG/NS 100ML 2,000 MG/100 ML BAG 100 MG IVPB (10:21)
[2023-11-23] MEDS: MAGNESIUM SULF 2 GM/WATER 50ML 2 GM/50 ML BAG IVPB (11:31)
[2023-11-23 12:04] LABS: Glucose Point of Care 93 mg/dl (65-105)
--- NOTE | 2023-11-23 12:55 | PM.IMPN ---
Progress Note: A&P Assessment and Plan (1) Acute pancreatitis: Qualifiers: Acute pancreatitis complication: no infection or necrosis Pancreatitis type: alcohol induced Qualified Code(s): K85.20 - Alcohol induced acute pancreatitis without necrosis or infection Code(s): K85.90 - Acute pancreatitis without necrosis or infection, unspecified Status: Acute Assessment and Plan: Clinical put his feeling pain plan is to continue current treatment goals. Electrolytes replaced. (2) Bloody stool: Code(s): K92.1 - Melena Status: Acute Assessment and Plan: Hemoglobin stable monitor closely. (3) Hypokalemia: Code(s): E87.6 - Hypokalemia Status: Acute Assessment and Plan: Replace and monitor (4) Hypocalcemia: Code(s): E83.51 - Hypocalcemia Status: Acute Assessment and Plan: Replace and monitor (5) Hyperbilirubinemia: Code(s): E80.6 - Other disorders of bilirubin metabolism Status: Acute Assessment and Plan: Stable (6) Alcoholic dependence syndrome: Qualifiers: Substance use status: other alcohol-induced disorder Qualified Code(s): F10.288 - Alcohol dependence with other alcohol-induced disorder Code(s): F10.20 - Alcohol dependence, uncomplicated Status: Acute Assessment and Plan: Counseling given. (7) Hepatic steatosis: Onset Date: 10/2023 Code(s): K76.0 - Fatty (change of) liver, not elsewhere classified Status: Acute Assessment and Plan: Stable (8) Depression: Qualifiers: Depression Type: major depressive disorder Major depression recurrence: recurrent Active/Remission status: in partial remission Qualified Code(s): F33.41 - Major depressive disorder, recurrent, in partial remission Code(s): F32.A - Depression, unspecified Status: Acute Assessment and Plan: Stable on current medication. Plan 11/23/2023 Patient is clinically improving. Plan is to continue current treatment. Replace and monitor electrolytes. Possible discharge in the morning. Acute blood-loss anemia, acute GI bleeding Patient came in with chief complaint of bloody stool Hemoglobin drops of 15. 5-11.5 today Suspecting acute blood loss anemia due to GI bleeding Keep patient p.o. Start Protonix drip Follow-up CBC, hemoglobin q.6 hours Transfuse to p.r.n. GI has consulted, follow-up recommendations Alcohol dependence, alcohol withdrawal drinks 1 pint vodka daily,last drink prior to ED arrival continue CIWA per protocol scheduled Ativan consult care coordination ( pt would like assistance with in-pt detox prior to discharge) continue telemetry monitoring neuro checks q.2 hours Acute pancreatitis, Possible due to alcohol abuse Elevated lipase CT shows distended gallbladder no stone Keep patient p.o. Start fluid resuscitation Follow-up GI recommendation Alcoholic hepatitis, hepatic steatosis Elevated liver enzymes, total bilirubin above baseline CT shows hepatic steatosis Acute increased liver enzymes suggesting alcoholic hepatitis Follow-up CMP Nausea liver enzymes trending down Severe hypokalemia, hypocalcemia Potassium 2.7, calcium 5.7 Provide potassium chloride 40 mg IV once, causing glucose at 2 g IV once Follow-up BMP q.6 hours Correct electrolyte abnormality accordingly Subjective Date/time seen: 11/23/23 12:55 Interval history: Patient was seen during the morning rounds today. Patient abdominal pain is slightly better. Decrease nausea and vomiting. No shortness of breath or chest pain. Mood stable. Review of Systems Review of Systems: All systems reviewed & are unremarkable except as noted in HPI and below Exam Narrative: GENERAL: Ill-appearing, pain distress. Well-nourished. - EYES: EOMI. Anicteric. - HENT: Moist mucous membranes. - LUNGS: Clear to auscultation bilaterally, no wheez
[2023-11-23] MEDS: KETOROLAC 15 MG/ML VIAL (*BKC) IV PUSH ×2 (14:41→22:30)
[2023-11-23] MEDS: DEXTROSE 5%/0.9% SOD CHL 1,000 ML 150 ML IV CONT ×2 (15:36→20:20)
[2023-11-23 17:24] LABS: Glucose Point of Care 165 mg/dl (65-105)
[2023-11-23] MEDS: QUEtiapine FUMARATE XR 50 MG TAB.ER.24H 150 MG PO (20:19)
[2023-11-23] MEDS: SERTRALINE HCL 50 MG TABLET 100 MG PO (20:19)
[2023-11-23] MEDS: BENZOCAINE/MENTHOL (*BKC) 18 EA LOZENGE 1 LOZENGE PO (21:31)
[2023-11-23 23:20] LABS: Glucose Point of Care 180 mg/dl (65-105)
[2023-11-24] VITALS: PULSE 84
[2023-11-24] MEDS: LORazepam INJ (*CRX) 2 MG/ML VIAL IV PUSH ×2 (00:27→08:14)
[2023-11-24] MEDS: DEXTROSE 5%/0.9% SOD CHL 1,000 ML 150 ML IV CONT ×2 (01:24→06:34)
[2023-11-24] MEDS: HYDROmorphone HCL INJ (*CRX) 1 MG/ML SYR 0.5 MG IV PUSH ×2 (01:47→05:00)
[2023-11-24 04:00] VITALS: BP 136/93; PULSE 78; PULSE 80; RESP 20; TEMP 36.9; O2SAT 100
[2023-11-24] MEDS: chlordiazePOXIDE (*CRX) 25 MG CAPSULE PO (05:00)
[2023-11-24 05:44] LABS: Glucose Point of Care 154 mg/dl (65-105)
[2023-11-24 05:57] LABS: Basophils Percent Auto 0.5 % (0.2-1.2); Eosinophils Absolute Auto 0.2 K/mm3 (0-0.3); Eosinophils Percent Auto 3.5 % (0-4.4); Hematocrit 33.1 % (37.0-47.0); Hemoglobin 11.2 g/dL (12.0-15.0); Immature Granulocyte Absolute 0.02 K/mm3 (0.00-0.031); Immature Granulocyte Percent A 0.5 % (0-0.5); Lymphocytes Absolute Auto 0.68 K/mm3 (0.9-3.2); Lymphocytes Percent Auto 15.7 % (18.3-44.2); Mean Corpuscular HGB Conc 33.8 g/dl (32-36); Mean Corpuscular Hemoglobin 32.1 pg (26-34); Mean Corpuscular Volume 94.8 fl (80-100); Mean Platelet Volume 10.3 fl (7.4-10.4); Monocytes Absolute Auto 0.2 K/mm3 (0.1-0.6); Monocytes Percent Auto 4.1 % (2.6-8.5); Neutrophils Absolute Auto 3.3 K/mm3 (1.3-6.7); Neutrophils Percent Auto 75.7 % (45.5-73.1); Platelet Count Result 110 k/mm3 (150-375); Red Blood Count 3.49 M/mm3 (4.2-5.4); Red Cell Distribution Width 15.9 % (11.5-14.5); White Blood Count 4.3 K/mm3 (4.5-10.0)
[2023-11-24 06:08] LABS: Alanine Aminotransferase 47 U/L (6-35); Albumin Level 3.7 g/dL (3.5-5.1); Alkaline Phosphatase 161 U/L (38-126); Anion Gap 9 mmol/L (4-12); Aspartate Amino Transferase 147 U/L (14-36); Bilirubin,Total 1.2 mg/dL (0.2-1.3); Calcium 6.6 mg/dL (8.4-10.2); Carbon Dioxide 23 mmol/L (22-30); Chloride 106 mmol/L (98-107); Estimated Glomerular Filt Rate > 60; Glucose 151 mg/dL (65-110); Magnesium 1.9 mg/dL (1.6-2.3); Potassium 3.2 mmol/L (3.4-5.0); Sodium 138 mmol/L (137-145)
[2023-11-24 06:15] LABS: Blood Urea Nitrogen < 2 mg/dL (7-17)
[2023-11-24] MEDS: PANTOPRAZOLE SODIUM IV 80 MG in SODIUM CHLORIDE 0.9% IV 500 ML 50 MG IV CONT (06:42)
[2023-11-24 08:14] VITALS: PULSE 91
[2023-11-24] MEDS: FOLIC ACID 1 MG TABLET PO (08:14)
[2023-11-24] MEDS: THIAMINE HCL 200 MG/2 ML VIAL 100 MG IV PUSH (08:14)
[2023-11-24 08:43] VITALS: BP 160/95; PULSE 81; RESP 16; TEMP 36.8; O2SAT 99
--- NOTE | 2023-11-24 09:38 | PM.DS ---
DS: Admitting Diagnosis Discharge Date 11/24/2023 Admitting Diagnosis Acute pancreatitis DS: Discharge Diagnosis Discharge Diagnosis (1) Acute pancreatitis: Qualifiers: Acute pancreatitis complication: no infection or necrosis Pancreatitis type: alcohol induced Qualified Code(s): K85.20 - Alcohol induced acute pancreatitis without necrosis or infection Code(s): K85.90 - Acute pancreatitis without necrosis or infection, unspecified Status: Acute Assessment and Plan: Clinical put his feeling pain plan is to continue current treatment goals. Electrolytes replaced. (2) Bloody stool: Code(s): K92.1 - Melena Status: Acute Assessment and Plan: Hemoglobin stable monitor closely. (3) Hypokalemia: Code(s): E87.6 - Hypokalemia Status: Acute Assessment and Plan: Replace and monitor (4) Hypocalcemia: Code(s): E83.51 - Hypocalcemia Status: Acute Assessment and Plan: Replace and monitor (5) Hyperbilirubinemia: Code(s): E80.6 - Other disorders of bilirubin metabolism Status: Acute Assessment and Plan: Stable (6) Alcoholic dependence syndrome: Qualifiers: Substance use status: other alcohol-induced disorder Qualified Code(s): F10.288 - Alcohol dependence with other alcohol-induced disorder Code(s): F10.20 - Alcohol dependence, uncomplicated Status: Acute Assessment and Plan: Counseling given. (7) Hepatic steatosis: Onset Date: 10/2023 Code(s): K76.0 - Fatty (change of) liver, not elsewhere classified Status: Acute Assessment and Plan: Stable (8) Depression: Qualifiers: Depression Type: major depressive disorder Major depression recurrence: recurrent Active/Remission status: in partial remission Qualified Code(s): F33.41 - Major depressive disorder, recurrent, in partial remission Code(s): F32.A - Depression, unspecified Status: Acute Assessment and Plan: Stable on current medication. Plan 11/23/2023 Patient is clinically improving. Plan is to continue current treatment. Replace and monitor electrolytes. Possible discharge in the morning. Acute blood-loss anemia, acute GI bleeding Patient came in with chief complaint of bloody stool Hemoglobin drops of 15. 5-11.5 today Suspecting acute blood loss anemia due to GI bleeding Keep patient p.o. Start Protonix drip Follow-up CBC, hemoglobin q.6 hours Transfuse to p.r.n. GI has consulted, follow-up recommendations Alcohol dependence, alcohol withdrawal drinks 1 pint vodka daily,last drink prior to ED arrival continue CIWA per protocol scheduled Ativan consult care coordination ( pt would like assistance with in-pt detox prior to discharge) continue telemetry monitoring neuro checks q.2 hours Acute pancreatitis, Possible due to alcohol abuse Elevated lipase CT shows distended gallbladder no stone Keep patient p.o. Start fluid resuscitation Follow-up GI recommendation Alcoholic hepatitis, hepatic steatosis Elevated liver enzymes, total bilirubin above baseline CT shows hepatic steatosis Acute increased liver enzymes suggesting alcoholic hepatitis Follow-up CMP Nausea liver enzymes trending down Severe hypokalemia, hypocalcemia Potassium 2.7, calcium 5.7 Provide potassium chloride 40 mg IV once, causing glucose at 2 g IV once Follow-up BMP q.6 hours Correct electrolyte abnormality accordingly DS: Summary Hospital Course Reason for hospitalization: Acute pancreatitis Hospital Course: 38 years old female with history of alcohol abuse was admitted complains of abdominal pain, patient was found to have acute pancreatitis. Patient was given pain medications and workup was done. Counseling was given to the patient. Electrolytes were replaced. Today patient feeling better and discharged home in stable condition. Follow-up with Gi and pr
--- NOTE | 2023-11-24 09:39 | WPDGIPROGNO ---
Progress Note: A&P Assessment and Plan (1) Acute pancreatitis: Qualifiers: Acute pancreatitis complication: no infection or necrosis Pancreatitis type: alcohol induced Qualified Code(s): K85.20 - Alcohol induced acute pancreatitis without necrosis or infection Code(s): K85.90 - Acute pancreatitis without necrosis or infection, unspecified Status: Acute Assessment and Plan: clinically better mrcp reviewed, normal bile duct and pancreatic duct, + hepatic steatosis normal bili today continue with liquid diet since she still has some pain, no emesis (2) Hepatitis, alcoholic: Qualifiers: Ascites presence: without ascites Qualified Code(s): K70.10 - Alcoholic hepatitis without ascites Code(s): K70.10 - Alcoholic hepatitis without ascites Status: Acute Assessment and Plan: also alcoholic hepatitis nutrition support, thiamine needs to quit drinking bili normal today (3) Elevated liver enzymes: Code(s): R74.8 - Abnormal levels of other serum enzymes Status: Acute Assessment and Plan: alcoholic hepatitis and pancreatitis she can follow-up in office to complete evaluation (4) Alcoholic dependence syndrome: Qualifiers: Substance use status: other alcohol-induced disorder Qualified Code(s): F10.288 - Alcohol dependence with other alcohol-induced disorder Code(s): F10.20 - Alcohol dependence, uncomplicated Status: Acute (5) Hepatic steatosis: Onset Date: 10/2023 Code(s): K76.0 - Fatty (change of) liver, not elsewhere classified Status: Acute (6) Thrombocytopenia: Code(s): D69.6 - Thrombocytopenia, unspecified Status: Acute Assessment and Plan: probably from alcohol/liver disease monitor Subjective Date/time seen: 11/24/23 09:39 Interval history: no major changes, still some pain but tolerating liquid diet Review of Systems Review of Systems: All systems reviewed & are unremarkable except as noted in HPI and below Exam Const: General: comfortable and no acute distress HENMT: Face/Nose/Sinus: Normal nares present Eyes: General: appearance normal, both eyes and all related structures Neck: Neck: supple Resp: Auscultation: clear to auscultation bilaterally Cardio: Rate: regular rate Rhythm: regular rhythm GI: Inspection: non-distended GI Palp: Yes Soft to palpation and Yes Tenderness to palpation present (GI) (ttp diffusely, no rebound) Auscultation: normal bowel sounds Skin: General skin exam: normal color Neuro: Speech: normal speech Motor exam (neuro): 5/5 motor strength present throughout Extrem: General: normal to inspection Psych: Mental Status: mental status grossly normal Objective Data Vital Signs Vital Signs: Vital Signs - 24 hr 11/23/23 09:46 11/23/23 14:10 11/23/23 12:00 Temperature 98.0 F 98.1 F Pulse Rate 87 92 82 Respiratory Rate 16 17 Blood Pressure 141/85 H 124/86 Pulse Oximetry 97 96 Oxygen Delivery 11/23/23 16:52 11/23/23 16:00 11/23/23 20:00 Temperature 97.7 F 98.2 F Pulse Rate 71 75 76 Respiratory Rate 16 20 Blood Pressure 148/87 H 149/93 H Pulse Oximetry 99 98 Oxygen Delivery 11/23/23 20:00 11/23/23 20:00 11/23/23 23:21 Temperature 98.4 F Pulse Rate 76 74 Respiratory Rate 20 Blood Pressure 143/82 H Pulse Oximetry 99 Oxygen Delivery Room Air 11/24/23 00:00 11/24/23 04:00 11/24/23 04:00 Temperature 98.4 F Pulse Rate 84 78 80 Respiratory Rate 20 Blood Pressure 136/93 H Pulse Oximetry 100 Oxygen Delivery 11/24/23 08:43 11/24/23 08:14 11/24/23 08:14 Temperature 98.3 F Pulse Rate 81 91 Respiratory Rate 16 Blood Pressure 160/95 H Pulse Oximetry 99 Oxygen Delivery Room Air Intake/Output Intake/Output: Intake & Output 11/21/23 11/22/23 11/23/23 11/24/23 23:59 23:59 23:59 23:59 Intake Total 3003.2 5936.7 5790 2980.8 Balance 3003.2 5936.7 57
[2023-11-24] MEDS: KETOROLAC 15 MG/ML VIAL (*BKC) IV PUSH (10:02)
[2023-11-24] MEDS: POTASSIUM CHLORIDE 20 MEQ ER TABLET 40 MEQ PO (10:04)
== END 2023-11-24 11:11 | disposition home or self-care (01) | DRG 439 ==
LOC: ANHED 15:59 → ANH3MED 16:14
PROVIDERS: Hospitalist; Nurse Practitioner; Nurse Practitioner Family; Student in an Organized Health Care Education/Training Program; Admitting Provider General Practice; Emergency Provider Emergency Medicine; PCP Family Medicine Adolescent Medicine; Visit Provider Internal Medicine
DX: K85.20 Alcohol induced acute pancreatitis without necrosis or infection (principal); D62 Acute posthemorrhagic anemia; K92.1 Melena; F10.288 Alcohol dependence with other alcohol-induced disorder; D69.6 Thrombocytopenia, unspecified; K70.10 Alcoholic hepatitis without ascites; F10.20 Alcohol dependence, uncomplicated; F17.290 Nicotine dependence, other tobacco product, uncomplicated; E87.6 Hypokalemia; E83.51 Hypocalcemia; F32.A Depression, unspecified; E78.5 Hyperlipidemia, unspecified; Y90.6 Blood alcohol level of 120-199 mg/100 ml
CPT/HCPCS: 36415; 74177; 74183; 76376; 76705; 80053; 80074; 80307; 81001; 81025; 82948; 83690; 83735; 85014; 85018; 85025; 85027; 85055; 85610; 96361; 96374; 96375; 96376; 99285; A9270; A9577; G0378; J0613; J1170; J1885; J2060; J2270; J2405; J2470; J3411; J3475; J3480; J7030; J7040; J7042; Q9967